=== PATIENT | male | born 1970 | race Caucasian/White ===

== ENCOUNTER 2017-03-04 22:11 | Emergency (ER) | payer OTHER ==
[~2017-03-04] VITALS: Ht 185.4 cm; Wt 86.2 kg
[2017-03-04 22:11] VITALS: BP_SYST 118
--- NOTE | 2017-03-04 22:11 | NUR ---
Patient to ER bed 7 to gown for evaluation. Side rails up. Report given to CARMEN Dominguez.
--- NOTE | 2017-03-04 22:15 | NUR ---
PT STATES PT HAD FAINTED WHILE WALKING INTO THE HOUSE, PT C/O HEADACHE 05/21 NON-RADIATING. NO KO, NO N/V. A/OX4, AWAKE, AFEBRILE. SAFETY PRECAUTIONS IN PLACE, WILL CONTINUE TO MONITOR.
--- NOTE | 2017-03-04 22:30 | NUR ---
ER Dr. Nicholson at bedside examining patient.
[2017-03-04] MEDS ORDERED: ACETAMINOPHEN 500 MG TABLET PO ONE (23:30)
[2017-03-05 00:24] LABS: BASOPHILS # (AUTO) 0.1 K/uL (0.0-0.2); BASOPHILS % (AUTO) 0.6 % (0.0-2.0); HEMATOCRIT 42.7 % (36-54); HEMOGLOBIN 14.3 g/dL (14.0-18.0); LYMPHOCYTES # (AUTO) 0.6 K/uL (1.0-5.5); LYMPHOCYTES % (AUTO) 4.9 % (20.5-51.5); MEAN CORPUSCULAR HEMOGLOBIN 30 pg (27-31); MEAN CORPUSCULAR HGB CONC 34 % (32-36); MEAN CORPUSCULAR VOLUME 91 fL (79.0-98.0); MONOCYTES # (AUTO) 0.4 K/uL (0.0-1.0); MONOCYTES % (AUTO) 3.7 % (1.7-9.3); NEUTROPHILS # (AUTO) 10.2 K/uL (1.8-7.7); NEUTROPHILS % (AUTO) 90.8 % (40.0-70.0); PLATELET COUNT (AUTO) 241 K/uL (130-430); RED BLOOD CELL COUNT(AUTO) 4.71 MIL/uL (4.2-6.2); RED CELL DISTRIBUTION WIDTH 13.2 % (9.0-15.0); WHITE BLOOD COUNT (AUTO) 11.3 K/uL (4.8-10.8)
[2017-03-05 00:31] LABS: INR 0.9 (0.80-1.20); PROTHROMBIN TIME 9.9 SECS (9.5-12.5)
[2017-03-05 00:43] LABS: ANION GAP 11 (5-15); CALCIUM 9.2 mg/dL (8.4-11.0); CHLORIDE 103 mmol/L (98-107); CREATININE 0.89 mg/dL (0.55-1.30); GLUCOSE 119 mg/dL (70-99); POTASSIUM 4.9 mmol/L (3.5-5.1); SODIUM SERUM 140 mmol/L (136-145); UREA NITROGEN, BLOOD 10 mg/dL (8-21)
[2017-03-05 00:49] LABS: ACETAMINOPHEN 14 ug/mL (1-30); ALANINE AMINOTRANSFERASE 25 U/L (12-78); ALBUMIN 4.1 g/dL (3.4-4.8); ASPARTATE AMINOTRANSFERASE 21 U/L (10-37); TOTAL BILIRUBIN 0.3 mg/dL (0.0-1.0); TOTAL PROTEIN, SERUM 7.1 g/dL (6.4-8.3)
[2017-03-05 00:50] LABS: GFR AFRICAN AMERICAN 119 mL/min (>90)
[2017-03-05 01:08] LABS: BILIRUBIN,URINE NEGATIVE (NEGATIVE); BLOOD, URINE 2+ (NEGATIVE); CLARITY/URINE CLEAR (CLEAR); COLOR,URINE YELLOW (YELLOW); GLUCOSE,URINE 1+ (NEGATIVE); KETONES,URINE NEGATIVE (NEGATIVE); LEUKOCYTE ESTERASE ,URINE NEGATIVE (NEGATIVE); NITRITE, URINE NEGATIVE (NEGATIVE); PH,URINE 5.5 (5.0-8.0); PROTEIN URINE TRACE (NEGATIVE); UROBILINOGEN,URINE 0.2 (0.2-1.0)
[2017-03-05 01:28] LABS: RBC,URINE 0-3 /HPF (0-3)
[2017-03-05 01:28] LABS: SALICYLATE 4 mg/dL (3-30)
[2017-03-05 01:29] LABS: BACTERIA,URINE FEW /HPF (None Seen); MUCUS,URINE None Seen /LPF (None Seen); WBC,URINE 0-3 /HPF (0-3)
[2017-03-05 01:35] LABS: ALCOHOL, BLOOD < 3 mg/dL (<10)
[2017-03-05 01:38] LABS: BARBITURATE, URINE NEGATIVE (NEG <=200); URINE AMPHETAMINE NEGATIVE (NEG <=500)
[2017-03-05 01:39] LABS: BENZODIAZEPINE, URINE NEGATIVE (NEG <=150); COCAINE, URINE NEGATIVE (NEG <=150); METHAMPHETAMINES SCREEN,URINE NEGATIVE (NEG <=500); URINE METHADONE NEGATIVE (NEG <=200)
[2017-03-05 01:40] LABS: CANNABINOID, URINE POSITIVE (NEG <=50); OPIATE, URINE NEGATIVE (NEG <=100); PHENCYCLIDINE SCREEN,URINE NEGATIVE (NEG <=25); UR TRICYCLIC ANTIDEPRESSANTS NEGATIVE (NEG <=300); URINE OXYCODONE SCREEN NEGATIVE (NEG <=100); URINE PROPOXYPHENE SCREEN NEGATIVE (NEG <=300)
[2017-03-05 02:00] VITALS: BP_SYST 113
--- NOTE | 2017-03-05 02:00 | NUR ---
Patient given written and verbal discharge instructions and verbalizes understanding. ER MD Dr. Nicholson discussed with patient the results and treatment provided. Patient in stable condition. ID arm band removed. IV catheter removed intact and dressing applied, no active bleeding. Patient educated on pain management and to follow up with PMD. Pain Scale 1/10, Pt states it is tolerable, ambulates w/ steady gait. Opportunity for questions provided and answered.
== END 2017-03-05 02:00 | disposition home or self-care (01) ==
LOC: SED 22:11
DX: R55 Syncope and collapse (principal); R51 Headache; R41.3 Other amnesia
CPT/HCPCS: 36415; 70450; 80053; 80307; 81000; 82962; 85025; 85610; 85730; 93005; 99285; G0480; G0481; G0482

== ENCOUNTER 2017-06-04 09:28 | Inpatient (IN) | payer OTHER ==
[~2017-06-04] VITALS: Ht 185.4 cm; Wt 84.8 kg
--- NOTE | 2017-06-04 09:35 | NUR ---
Pt was brought to bed 3 with vomiting and headache since this morning 0200, pt states was sweating through many shirts this morning. Pt denies eating anything to cause vomiting. No other injuries/complaints per pt or noted.
[2017-06-04 09:37] VITALS: BP_SYST 119
--- NOTE | 2017-06-04 10:28 | NUR ---
ISRAEL Gabriel at bedside examining patient.
--- NOTE | 2017-06-04 10:30 | NUR ---
Pt was having a seizure, Dr Shelton was at bedside and ativan 2mg ivp was given, is at bedside.
[2017-06-04] MEDS ORDERED: NACL 0.9% 1,000 ML IV ONE (10:41)
--- NOTE | 2017-06-04 10:45 | NUR ---
Pt continued to seize and Dr Shelton ordered another 2 mg ivp of ativan, which was given.
--- NOTE | 2017-06-04 10:50 | NUR ---
Pt is aggitated and kicking and trying to pull out equipment, Dr Shelton is aware
[2017-06-04] MEDS ORDERED: LORazepam 2 MG/ML VIAL (FOR ER USE) ONE ×2 (10:52→11:05)
[2017-06-04] MEDS ORDERED: LORazepam 2 MG/ML VIAL IVP ONE ×2 (11:00→12:00)
--- NOTE | 2017-06-04 11:06 | NUR ---
Dr Shelton ordered Versed 2mg ivp because pt continues to kick and try to pull iv's and equipment off.
[2017-06-04] MEDS ORDERED: MIDAZOLAM HCL 5 MG/5 ML VIAL ONE (11:14)
[2017-06-04] MEDS ORDERED: HALOPERIDOL LACTATE 5 MG/ML VIAL IVP ONE (11:15)
[2017-06-04] MEDS ORDERED: MIDAZOLAM HCL 5 MG/5 ML VIAL IVP ONE (11:15)
--- NOTE | 2017-06-04 11:15 | NUR ---
Pt is still aggitated and kicking and pulling lines, Dr Shelton is aware and pt was moved to bed 1. Pt needs to go to CT and Haldol was ordered to help keep the pt calm during CT.
[2017-06-04 11:33] LABS: HEMATOCRIT 49.1 % (36-54); HEMOGLOBIN 15.6 g/dL (14.0-18.0); MEAN CORPUSCULAR HEMOGLOBIN 30 pg (27-31); MEAN CORPUSCULAR HGB CONC 32 % (32-36); MEAN CORPUSCULAR VOLUME 94 fL (79.0-98.0); PLATELET COUNT (AUTO) 285 K/uL (130-430); RED BLOOD CELL COUNT(AUTO) 5.26 MIL/uL (4.2-6.2); RED CELL DISTRIBUTION WIDTH 13.6 % (9.0-15.0); WHITE BLOOD COUNT (AUTO) 20.5 K/uL (4.8-10.8)
[2017-06-04 11:34] LABS: CALCIUM 9.9 mg/dL (8.4-11.0); CREATININE 1.36 mg/dL (0.55-1.30); POTASSIUM 4.2 mmol/L (3.5-5.1)
--- NOTE | 2017-06-04 11:35 | NUR ---
Pt was given haldol and Sahil and myself took the pt to CT, pt still aggitated but was able to keep the pt still
[2017-06-04 11:37] LABS: INR 0.9 (0.80-1.20); PROTHROMBIN TIME 9.7 SECS (9.5-12.5)
[2017-06-04 11:39] LABS: ALBUMIN 4.9 g/dL (3.4-4.8); TOTAL BILIRUBIN 0.5 mg/dL (0.0-1.0)
[2017-06-04 11:51] LABS: BASOPHILS % (MANUAL) 0 % (0-2); EOSINOPHILS % (MANUAL) 0 % (0-7); LYMPHOCYTES % (MANUAL) 6 % (20-46); MONOCYTES % (MANUAL) 5 % (0-11)
--- NOTE | 2017-06-04 12:00 | NUR ---
Pt is resting comfortably with no noted distress or discomfort, pt is 99% on room air. is at bedside
[2017-06-04 12:12] LABS: ALCOHOL, BLOOD < 3 mg/dL (<10)
[2017-06-04 12:15] LABS: ACETAMINOPHEN < 1 ug/mL (1-30)
[2017-06-04 12:18] LABS: BARBITURATE, URINE NEGATIVE (NEG <=200); BENZODIAZEPINE, URINE NEGATIVE (NEG <=150); CANNABINOID, URINE POSITIVE (NEG <=50); COCAINE, URINE NEGATIVE (NEG <=150); METHAMPHETAMINES SCREEN,URINE NEGATIVE (NEG <=500); OPIATE, URINE NEGATIVE (NEG <=100); PHENCYCLIDINE SCREEN,URINE NEGATIVE (NEG <=25); UR TRICYCLIC ANTIDEPRESSANTS NEGATIVE (NEG <=300); URINE AMPHETAMINE NEGATIVE (NEG <=500); URINE METHADONE NEGATIVE (NEG <=200); URINE OXYCODONE SCREEN NEGATIVE (NEG <=100); URINE PROPOXYPHENE SCREEN NEGATIVE (NEG <=300)
[2017-06-04 12:46] LABS: BILIRUBIN,URINE NEGATIVE (NEGATIVE); BLOOD, URINE 3+ (NEGATIVE); CLARITY/URINE CLEAR (CLEAR); COLOR,URINE YELLOW (YELLOW); GLUCOSE,URINE NEGATIVE (NEGATIVE); KETONES,URINE TRACE (NEGATIVE); LEUKOCYTE ESTERASE ,URINE NEGATIVE (NEGATIVE); NITRITE, URINE NEGATIVE (NEGATIVE); PROTEIN URINE 1+ (NEGATIVE); UROBILINOGEN,URINE 0.2 (0.2-1.0)
--- NOTE | 2017-06-04 12:51 | NUR ---
Medication reconciliation completed with information provided by . Any prior medication reconciliation on file was reviewed and corrected. No home medications
[2017-06-04 12:54] LABS: BACTERIA,URINE FEW /HPF (None Seen); MUCUS,URINE None Seen /LPF (None Seen); WBC,URINE 0-3 /HPF (0-3)
--- NOTE | 2017-06-04 13:02 | NUR ---
Patient will be admitted to care of Dr Barraza. Admitted to telemetry unit. Will go to room 135. Belongings list completed. Summary report printed. Report will be given at bedside.
--- NOTE | 2017-06-04 13:10 | NUR ---
ADMIT NOTE Received pt from ER to the floor with a diagnosis of new onset seizure. Admission process initiated. patient oriented to pain management, safety and call light-teach back done.
--- NOTE | 2017-06-04 13:25 | NUR ---
CONSULTATION PAGED REASON FOR CONSULTATION:NEW ONSET SEIZURES WAS CONSULT CALLED?Y PERSON WHO WAS NOTIFIED:PRASANTH CONSULTING PHYSICIAN:PATRICA ARRIAGA STAFF RADIOLOGIST SPECIALTY:NEURO STAFF RADIOLOGIST PHONE NUMBER:[phone] ORDERING PHYSICIAN:MELLY ALMONTE
--- NOTE | 2017-06-04 13:30 | NUR ---
Admission notes, received pt from e.r for new onset seizures. bed siderails padded. pt is very drowsy but wakes up to voice and touch and then goes back to sleep again. pt's vitals wnl except for temp to 99.6F. no s/s pain, no sob, no distress. o2 sat on room air is 93-94%. pt's and brother at bedside. iv access on left and right arm intact and patent. call light and tv controls at bedside, bed in low position. bed alarm on. room near nurses station. will cont to monitor.
[2017-06-04 13:36] VITALS: BP_SYST 101
[2017-06-04 13:51] VITALS: BP_SYST 117
--- NOTE | 2017-06-04 13:56 | NUR ---
ATTENDING MD DR MORRISON WAS CALLED TO CLARIFY A CONSULT ESEQUIEL CORLEY. DOES NOT HAVE HOSP PRIVILEGES . SPOKE TO BHUMIKA
[2017-06-04] MEDS ORDERED: LORazepam 2 MG/ML VIAL IVP PRN (14:00)
--- NOTE | 2017-06-04 14:28 | NUR ---
ID CONSULT CALLED TO DR JEFFERS, RE: FEVER, HIGH WBC. SPOKE TO ONDINA
[2017-06-04] MEDS: POTASSIUM CHLORIDE 10 MEQ in NACL 0.9% 1,000 ML IV SCH (15:42)
--- NOTE | 2017-06-04 16:00 | NUR ---
rounding notes, pt in bed, sleeping, no signs of distress. no s/s pain, safety precaution in place. pt's at bedside. will cont to monitor.
[2017-06-04 16:07] VITALS: BP_SYST 97
[2017-06-04] MEDS ORDERED: PHENYTOIN SODIUM INJ 1,000 MG in NS 100 ML IV ONE (16:30)
--- NOTE | 2017-06-04 17:38 | NUR ---
PAGED PAGED MELLY ALMONTE AT [phone] SPOKE WITH ROSALIE.
--- NOTE | 2017-06-04 18:04 | NUR ---
DR LOW WAS HERE AND ATTEMPTED SPINAL TAP, UNABLE TO COLLECT SAMPLE. PER PT UNABLE TO COOPERATE TO MAINTAIN A SAFE POSITION FOR COLLEECTION OF SAMPLE.
--- NOTE | 2017-06-04 18:37 | NUR ---
closing notes pt in bed, still sleepy but waits up to voice and touch. family at bedside. dr moore seen patient and dr cooper spoke to rn anahy and gave orders. dr moore saw pt and new orders were given. spinal tap done but unsuccessful. iv fluids infusing well. call light/phone w/in reach. bed in low position. bed alarm on, will endorse pt to night rn.
[2017-06-04] MEDS: levETIRAcetam 500 MG in NS 100 ML IV SCH ×2 (20:37→20:38)
[2017-06-04] MEDS: VANCOMYCIN HCL 1 GM/NS PREMIX 250 ML IV SCH (20:39)
[2017-06-04 21:04] VITALS: BP_SYST 108
[2017-06-04] MEDS: ACYCLOVIR 400 MG TABLET PO SCH (21:23)
--- NOTE | 2017-06-04 21:25 | NUR ---
Patient resting on room air 02 SAT 96 % family at the bedside comfort measures implemented kept clean and dry as needed .
[2017-06-05] VITALS (7 sets, daily range): BP systolic 96–131
--- NOTE | 2017-06-05 00:43 | NUR ---
KEPPRA 1000 MG IVPB administer for seizure control , and effective no active sx noted frequent monitor .
--- NOTE | 2017-06-05 00:45 | NUR ---
VANCOMYCIN 1 GM IVPB administer as ordered no adverse reaction noted skin rash free .
--- NOTE | 2017-06-05 00:46 | NUR ---
Reposition and Turning patient off loading with pillows , family @ the bedside kept clean and dry as needed .
--- NOTE | 2017-06-05 00:47 | NUR ---
ROCEPHIN 2 GM IVPB administer as ordered no allergic reaction noted chest movement symmetrical / .
--- NOTE | 2017-06-05 02:00 | NUR ---
URINE COLLECTED AND SENT TO LAB .
[2017-06-05] MEDS: ACYCLOVIR 400 MG TABLET PO SCH ×3 (06:07→21:32)
[2017-06-05] MEDS: POTASSIUM CHLORIDE 10 MEQ in NACL 0.9% 1,000 ML IV SCH ×2 (06:07→09:06)
--- NOTE | 2017-06-05 06:45 | NUR ---
patient awake alert no visual seizure activity noted family at the bedside skin dry warm chest movement symmetrical call harrell with PT .
[2017-06-05 07:01] LABS: BASOPHILS # (AUTO) 0.3 K/uL (0.0-0.2); BASOPHILS % (AUTO) 2.4 % (0.0-2.0); EOSINOPHILS % (AUTO) 0.4 % (0.0-4.0); HEMATOCRIT 40.4 % (36-54); HEMOGLOBIN 13.5 g/dL (14.0-18.0); LYMPHOCYTES % (AUTO) 9.5 % (20.5-51.5); MEAN CORPUSCULAR HEMOGLOBIN 31 pg (27-31); MEAN CORPUSCULAR HGB CONC 33 % (32-36); MEAN CORPUSCULAR VOLUME 91 fL (79.0-98.0); MONOCYTES % (AUTO) 9.1 % (1.7-9.3); NEUTROPHILS # (AUTO) 8.7 K/uL (1.8-7.7); NEUTROPHILS % (AUTO) 78.6 % (40.0-70.0); PLATELET COUNT (AUTO) 195 K/uL (130-430); RED BLOOD CELL COUNT(AUTO) 4.42 MIL/uL (4.2-6.2); RED CELL DISTRIBUTION WIDTH 13.5 % (9.0-15.0)
[2017-06-05 07:55] LABS: ALBUMIN 3.6 g/dL (3.4-4.8); CREATININE 0.89 mg/dL (0.55-1.30); POTASSIUM 3.7 mmol/L (3.5-5.1); THYROID STIMULATING HORMONE 0.52 uIu/mL (0.34-4.82); TOTAL BILIRUBIN 0.5 mg/dL (0.0-1.0)
--- NOTE | 2017-06-05 08:10 | NUR ---
RN OPENING NOTE PT PRESENTED WITH NEW ONSET OF SEIZURE - BED RAIL PADS IN PLACE AND PT AND HIS (WHO IS AT BEDSIDE) EDUCATED ON SEIZURE PRECAUTIONS AND S/S OF SEIZURE. PT RESTING IN BED WITH NO COMPLAINT OF DISCOMFORT, A/O X 4, AND VS STABLE ON ROOM AIR. R F/A IV IS PATENT, DRESSING DRY AND INTACT. PT EDUCATED ON UNIT SAFETY AND DISPLAYED ABILITY TO USE THE CALL LIGHT. BED IS IN LOWEST POSITION, CALL LIGHT AND PHONE IS WITHIN REACH, AND BED ALARM IS SET.
--- NOTE | 2017-06-05 08:53 | NUR ---
Nutrition Update Joe Scale 16 noted. Pt admitted for new onset seizures. Diet: regular BMI: 24.7 kg/m2 RD to follow per nutrition care standards.
[2017-06-05] MEDS: FAMOTIDINE 20 MG TABLET PO SCH (09:23)
[2017-06-05] MEDS: ACETAMINOPHEN 325 MG TABLET PO PRN ×2 (09:23→18:36)
[2017-06-05] MEDS: levETIRAcetam 500 MG in NS 100 ML IV SCH ×2 (09:24→21:33)
--- NOTE | 2017-06-05 10:00 | NUR ---
RN ROUNDS PT RESTING IN BED AND APPEARS TO BE SLEEPING WITH NO SIGN OF DISCOMFORT. THE PT'S IS AT BEDSIDE.
[2017-06-05] MEDS: VANCOMYCIN HCL 1 GM/NS PREMIX 250 ML IV SCH ×2 (10:11→21:34)
[2017-06-05] MEDS ORDERED: ONDANSETRON HCL 4 MG/2 ML VIAL IVP PRN (13:00)
--- NOTE | 2017-06-05 13:08 | NUR ---
DR. MORRISON AT BEDSIDE - NEW ORDERS RECEIVED
[2017-06-05] MEDS ORDERED: LIDOCAINE 1%, 20 ML MDV 20 ML ONE (13:22)
[2017-06-05] MEDS: KCL 20 mEq in D5NS 1000 mL 1,000 ML IV SCH ×2 (15:05→22:58)
--- NOTE | 2017-06-05 16:15 | NUR ---
PT RETURNED FROM MRI, VS STABLE ON ROOM AIR AND PT IS NOT COMPLAINING OF PAIN.
--- NOTE | 2017-06-05 17:45 | NUR ---
DR. LOW AT BEDSIDE
[2017-06-05 17:46] LABS: CSF APPEARANCE CLEAR (CLEAR); CSF COLOR COLORLESS (COLORLESS); CSF TUBE NUMBER 3; CSF VOLUME 7.5 mL
[2017-06-05 17:47] LABS: CSF LYMPHOCYTES 100 % (40-60); CSF RED BLOOD CELL COUNT 1 /uL (0-0); CSF WHITE BLOOD CELL COUNT 3 /uL (0-5)
[2017-06-05 18:04] LABS: CSF GLUCOSE 61 mg/dL (40-70); CSF PROTEIN 37 mg/dL (15-45)
--- NOTE | 2017-06-05 18:36 | NUR ---
PT COMPLAINING OF MILD HEADACHE: TYLENOL ADMINISTERED PRESCRIBED.
--- NOTE | 2017-06-05 19:15 | NUR ---
RN CLOSING NOTES PT IS SITTING UP IN BED TALKING WITH HIS FAMILY MEMBERS WHO ARE AT BEDSIDE. PT IS NOT COMPLAINING OF DISCOMFORT AND STATED HE WAS SATISFIED WITH THE CARE HE RECEIVED DURING THE SHIFT. REPORT ENDORSED AT BEDSIDE.
--- NOTE | 2017-06-05 20:35 | NUR ---
Patient awake alert assist out of bed to rest room , skin dry warm chest movement symmetrical fall measures implemented seizure precautions in place .
--- NOTE | 2017-06-05 22:00 | NUR ---
EEG in progress @ the bedside patient awake & alert .
--- NOTE | 2017-06-05 22:58 | NUR ---
spoke with DR Navneet LOW , UPDATED & AWARE OF CSF CULTURE RARE WBC & NO ORGANISM SEEN , TEST RESULTS .
--- NOTE | 2017-06-05 23:00 | NUR ---
SBAR Report given to Ned ARIAS .
--- NOTE | 2017-06-05 23:00 | NUR ---
received the pt from the RN pt a/a/ox4 no seizure activity noted.seizure precautions in place.iv intact to rt ac,no redness or swelling noted.monitor in place and shows SR.call light within reach ,safety measures in progress.will continue to monitor.
--- NOTE | 2017-06-05 23:10 | NUR ---
Received report from Gil MORALES. IV Rocephin ongoing. Patient a/o x 4. Family at bedside. Seizure precaution applied. Emptied 200 ml clear yellow urine from urinal. Call light within reach, bed at lowest position, will continue to monitor patient with Ned ARIAS.
--- NOTE | 2017-06-06 02:01 | NUR ---
Patient went to bathroom for BM. C/o groin discomfort, will give Tylenol later.
[2017-06-06] MEDS: ACETAMINOPHEN 325 MG TABLET PO PRN ×2 (02:04→16:33)
--- NOTE | 2017-06-06 02:21 | NUR ---
notes pt ambulated to the bathroom and back.was given tylenol for a c/o groin pain.
--- NOTE | 2017-06-06 03:37 | NUR ---
notes pt sleeping,call light within reach.continue to monitol
[2017-06-06 04:30] VITALS: BP_SYST 106
--- NOTE | 2017-06-06 05:34 | NUR ---
notes pt remains asleep ,no seizure activity noted.
[2017-06-06] MEDS: ACYCLOVIR 400 MG TABLET PO SCH ×3 (05:57→22:20)
--- NOTE | 2017-06-06 06:08 | NUR ---
closing notes pt awaken for medication,no seizure activity noted.will endorse the care of the pt to the day nurse.pt ambulated to the bathroom.
[2017-06-06 08:12] VITALS: BP_SYST 118
--- NOTE | 2017-06-06 08:13 | NUR ---
RN OPENING NOTE PT PRESENTED WITH NEW ONSET OF SEIZURE - BED RAIL PADS IN PLACE. PT IS SITTING UP IN BED WITH NO COMPLAINT OF DISCOMFORT, A/O X 4, SPEAKS MOZAMBICAN, AND VS STABLE ON ROOM AIR. R F/A IV IS PATENT, DRESSING DRY AND INTACT. pT'S IS CURRENTLY AT BEDSIDE. PT AND HIS EDUCATED ON SEIZURE PRECAUTIONS, S/S OF A SEIZURES, AND UNIT SAFETY. PT DISPLAYED ABILITY TO USE THE CALL LIGHT. BED IS IN LOWEST POSITION AND CALL LIGHT AND PHONE WITHIN REACH.
[2017-06-06] MEDS: FAMOTIDINE 20 MG TABLET PO SCH (08:34)
[2017-06-06] MEDS: levETIRAcetam 500 MG in NS 100 ML IV SCH ×2 (08:35→20:18)
--- NOTE | 2017-06-06 08:47 | NUR ---
PAGED PAGED MELLY ALMONTE AT [phone] SPOKE WITH EVA.
--- NOTE | 2017-06-06 09:10 | NUR ---
2ND PAGED TO CALLED MELLY ALMONTE AT [phone] SPOKE WITH EVA.
--- NOTE | 2017-06-06 09:41 | NUR ---
DR LOW AT BEDSIDE DR ORDERED A CBC TO RULE OUT INFECTION
[2017-06-06] MEDS: KCL 20 mEq in D5NS 1000 mL 1,000 ML IV SCH (09:43)
--- NOTE | 2017-06-06 09:50 | NUR ---
IV VANCO DELAYED DUE TO CONCURRENT IV MEDICATION - I WILL ADMINISTER IT NETTIE
[2017-06-06] MEDS ORDERED: HYDROcodone/ACETAMIN 5-325 MG TAB (NORCO/ VICODIN) PO ONE (10:00)
[2017-06-06 10:41] LABS: BASOPHILS # (AUTO) 0.1 K/uL (0.0-0.2); BASOPHILS % (AUTO) 1.6 % (0.0-2.0); EOSINOPHILS # (AUTO) 0.1 K/uL (0.0-0.4); HEMATOCRIT 39.6 % (36-54); HEMOGLOBIN 13.2 g/dL (14.0-18.0); LYMPHOCYTES # (AUTO) 0.8 K/uL (1.0-5.5); LYMPHOCYTES % (AUTO) 9.4 % (20.5-51.5); MEAN CORPUSCULAR HEMOGLOBIN 31 pg (27-31); MEAN CORPUSCULAR HGB CONC 33 % (32-36); MEAN CORPUSCULAR VOLUME 92 fL (79.0-98.0); MONOCYTES # (AUTO) 0.8 K/uL (0.0-1.0); MONOCYTES % (AUTO) 9.8 % (1.7-9.3); NEUTROPHILS # (AUTO) 6.3 K/uL (1.8-7.7); NEUTROPHILS % (AUTO) 78.2 % (40.0-70.0); PLATELET COUNT (AUTO) 183 K/uL (130-430); RED BLOOD CELL COUNT(AUTO) 4.32 MIL/uL (4.2-6.2); RED CELL DISTRIBUTION WIDTH 13.3 % (9.0-15.0); WHITE BLOOD COUNT (AUTO) 8.1 K/uL (4.8-10.8)
[2017-06-06] MEDS: VANCOMYCIN HCL 1 GM/NS PREMIX 250 ML IV SCH ×2 (11:14→22:20)
[2017-06-06 12:17] VITALS: BP_SYST 118
--- NOTE | 2017-06-06 13:30 | NUR ---
RN ROUNDS PT SITTING UP IN BED TALKING WITH SEVERAL FAMILY MEMBERS WHO ARE AT BEDSIDE. PATIENT HAS NO COMPLAINT OF DISCOMFORT AND DOES NOT NEED ANYTHING AT THIS TIME.
[2017-06-06 16:04] VITALS: BP_SYST 116
--- NOTE | 2017-06-06 16:34 | NUR ---
HEADACHE PT COMPLAINING OF PAIN IN THE BACK OF HIS HEAD - PT IS AFEBRILE AND VS STABLE ON ROOM AIR. TYLENOL ADMINISTERED SCHEDULED PRN
--- NOTE | 2017-06-06 18:30 | NUR ---
RN CLOSING NOTE PT SITTING UP IN BED TALKING WITH HIS FAMILY WITH NO COMPLAINT OF DISCOMFORT ASIDE FROM A MILD HEADACHE (TYLENOL RECENTLY ADMINISTERED) PT IS STABLE ON ROOM AIR AND STATED ALL OF HIS NEEDS WERE MET DURING THE SHIFT. i EDUCATED HE AND HIS ON HOW THE BED ALARM WORKS AND THAT WE WILL ACTIVATE IT IF AND WHEN THE KEAVES THE ROOM: PT SATISFIED WITH SAFETY MEASURES.
[2017-06-06 19:55] VITALS: BP_SYST 128
--- NOTE | 2017-06-06 19:55 | NUR ---
INITIAL NOTE Patient resting on the bed. No acute distress. Respiration even and unlabored. AO x 4. C/O neck pain 5/10, will given pain med. Skin warm and dry to touch. IV intact to RAC, no redness, no swelling, no drainage. On D5 NS with KCl 20mEq at 50ml/hr, infusing well. Family at bedside. Discussed the safety issue, use call light when need help, and plan of care, verbally understanding. Safety measure maintained. Bed in low position, padded side rails up. Call light within reached. Will continue to monitor.
[2017-06-06] MEDS: HYDROcodone/ACETAMIN 5-325 MG TAB (NORCO/ VICODIN) PO PRN (20:18)
--- NOTE | 2017-06-06 21:20 | NUR ---
ROUND Patient resting on the be comfortable. No acute distress. Respiration even and unlabored. Safety measure maintained. Bed in low position, padded side rails up. Call light within reached. at bedside. Continue to monitor.
--- NOTE | 2017-06-06 22:49 | NUR ---
AMBULATING IN THE HALLWAY WITH
[2017-06-07] VITALS: BP_SYST 122
--- NOTE | 2017-06-07 00:15 | NUR ---
ROUND Patient resting on the bed with eyes closed. No acute distress. Safety measure maintained. Bed in low position, padded side rails up. Call light within reached. Continue to monitor.
--- NOTE | 2017-06-07 02:29 | NUR ---
ROUND Patient resting on the bed with eyes closed. No acute distress. Respiration even and unlabored. IV intact, IVF infusing well. Safety measure maintained. Bed in low position, side rails up. Call light within reached. Continue to monitor.
[2017-06-07 04:15] VITALS: BP_SYST 110
[2017-06-07] MEDS: KCL 20 mEq in D5NS 1000 mL 1,000 ML IV SCH (04:22)
[2017-06-07] MEDS: HYDROcodone/ACETAMIN 5-325 MG TAB (NORCO/ VICODIN) PO PRN ×3 (04:27→19:59)
--- NOTE | 2017-06-07 04:27 | NUR ---
NORCO GIVEN Patient c/o posterior neck pain 03/21, [place] 5/325mg 1 tab given as ordered. No acute distress. Safety measure maintained. Bed in low position, side rails up. Call light within reached. at bedside. Continue to monitor.
[2017-06-07] MEDS: ACYCLOVIR 400 MG TABLET PO SCH ×3 (06:11→21:24)
--- NOTE | 2017-06-07 06:30 | NUR ---
CLOSING NOTE Patient resting on the bed with eyes closed. No acute distress. Respiration even and unlabored. Skin warm and dry to touch. IV intact to RAC, no redness, no swelling, no drainage. On D5 NS with KCl 20mEq at 50ml/hr, infusing well. at bedside the whole night. All needs met. Hourly rounding during shift. No seizure activity noted during shift. Seizure precaution maintained. Safety measure maintained. Bed in low position, padded side rails up. Call light within reached. Will endorse to morning shift nurse.
--- NOTE | 2017-06-07 07:10 | NUR ---
Morning Rounds: Report given by night worker nurse. Patient asleep in bed at this time. Patient in no distress. on recliner bed asleep as well. No distress or complaints.
--- NOTE | 2017-06-07 08:19 | NUR ---
Medication Patient administered medications, No complications.
[2017-06-07 08:20] VITALS: BP_SYST 123
[2017-06-07] MEDS: FAMOTIDINE 20 MG TABLET PO SCH (08:21)
[2017-06-07] MEDS: levETIRAcetam 500 MG in NS 100 ML IV SCH ×2 (08:22→20:00)
[2017-06-07] MEDS: VANCOMYCIN HCL 1 GM/NS PREMIX 250 ML IV SCH (08:23)
--- NOTE | 2017-06-07 11:39 | NUR ---
Rounds Patient watching television with family members at bedside. Patient denies any complaints or needs at this time. Patient stable and appears relaxed. Encourage use of call light if in need of assistance.
[2017-06-07 12:16] VITALS: BP_SYST 118
--- NOTE | 2017-06-07 14:09 | NUR ---
Rounds Patient denies any discomfort or need for pain medications. Patient linens changed per patient request. Patient watching television with family at this time.
--- NOTE | 2017-06-07 15:15 | NUR ---
PAIN PAIN MEDICATION REASSESSMENT COMPLETED. PATIENT REFUSES ANY PAIN AT THIS TIME. WATCHING TELEVISION AND STATES, " "I FEEL BETTER."
[2017-06-07 16:08] VITALS: BP_SYST 111
[2017-06-07] MEDS: VANCOMYCIN HCL 1,000 MG in NS 250 ML IV SCH (17:09)
--- NOTE | 2017-06-07 17:15 | NUR ---
IV IV ON RIGHT AC, NOTED SOILED. IV DRESSING CHANGED AT THIS TIME, APPLIED NEW TRANSPARENT DRESSING, SECURED WITH MEDIPORE TAPE, DATED WITH INITIALS.
--- NOTE | 2017-06-07 17:35 | NUR ---
ROUNDS PATIENT RESTING AT THIS TIME. FAMILY LEFT AT THIS TIME. PATIENT DENIES ANY DISTRESS.
--- NOTE | 2017-06-07 18:06 | NUR ---
IV Replaced IV leaking at Right AC, removed and Reinserted new iv access to right Forearm using gauge 20, no complications. IV antibiotics continuing to be infused.
--- NOTE | 2017-06-07 18:23 | NUR ---
CLOSING NOTES PATIENT RESTING IN BED WATCHING TELEVISION WITH AT BEDSIDE. PATIENT IN NO DISTRESS AND STABLE.
[2017-06-07 19:20] VITALS: BP_SYST 108
--- NOTE | 2017-06-07 19:20 | NUR ---
INITIAL NOTE Patient resting on the bed comfortable. No acute distress. Respiration even and unlabored. AO x 4. Denied of pain at this time. Skin warm and to touch. IV intact to LFA, no redness, no swelling, no drainage, infusing vancomycin at this time. at bedside. Discussed the safety issue, use call light when need help, and plan of care, verbally understanding. Safety measure maintained. Bed in low position, padded side rails up. Call light within reached. Will continue to monitor.
--- NOTE | 2017-06-07 19:48 | NUR ---
AMBULATING IN THE [address] WITH , NO ACUTE DISTRESS
--- NOTE | 2017-06-07 20:00 | NUR ---
NORCO GIVEN Patient c/o posterior neck pain 5/10 after ambulated. [place] 5/325mg 1tab PO given as ordered. No acute distress. Eating the food brought from family with at bedside. Safety measure maintained. Call light within reached. Continue to monitor.
--- NOTE | 2017-06-07 21:49 | NUR ---
ROUND Patient resting on the bed and watching TV. No acute distress. at bedside. Safety measure maintained. Bed in low position, padded side rails up. Call light within reached. Continue to monitor.
--- NOTE | 2017-06-07 23:10 | NUR ---
ROUND Patient resting on the bed with eyes closed. No acute distress. Respiration even and unlabored. IV intact, IVF infusing well. at bedside. Safety measure maintained. Bed in low position, padded side rails up. Call light within reached. Continue to monitor.
[2017-06-08] MEDS: KCL 20 mEq in D5NS 1000 mL 1,000 ML IV SCH ×2 (00:22→12:49)
[2017-06-08 01:00] VITALS: BP_SYST 149
[2017-06-08] MEDS: VANCOMYCIN HCL 1,000 MG in NS 250 ML IV SCH ×2 (01:08→09:08)
[2017-06-08] MEDS: ACETAMINOPHEN 325 MG TABLET PO PRN (01:13)
--- NOTE | 2017-06-08 01:16 | NUR ---
TYLENOL GIVEN Patient c/o right side of the neck pain 12/19, Tylenol 650mg Po given as ordered. No acute distress. Safety measure maintained. Call light within reached. Bed in low position, padded side rails up. Continue to monitor.
[2017-06-08 04:53] VITALS: BP_SYST 117
--- NOTE | 2017-06-08 04:55 | NUR ---
ROUND Patient resting on the bed with eyes closed. No acute distress. IV intact, IVF infusing well. at bedside. Safety measure maintained. Call light within reached. Bed in low position, padded side rails up. Continue to monitor.
[2017-06-08] MEDS: ACYCLOVIR 400 MG TABLET PO SCH (06:10)
--- NOTE | 2017-06-08 06:46 | NUR ---
CLOSING NOTE Patient resting on the bed. No acute distress. Respiration even and unlabored. Skin warm and to touch. IV intact to LFA, no redness, no swelling, no drainage. On D5 1/2NS with KCL 20mEq at 50ml/hr, infusing well. at bedside. All needs met. Hourly rounding during shift. Safety measure maintained. Bed in low position, padded side rails up. Call light within reached. Will endorse to next shift nurse.
--- NOTE | 2017-06-08 08:00 | NUR ---
AM NOTE: RECEIVED PT A/O X 4, C/O SEIZURE, IV AT RIGHT FA, REGULAR DIET, SKIN INTACT, AMBULATED WELL, CALL LIGHT WITHIN REACH, FAMILY AT BED SIDE.
[2017-06-08] MEDS: FAMOTIDINE 20 MG TABLET PO SCH (09:07)
[2017-06-08] MEDS: levETIRAcetam 500 MG in NS 100 ML IV SCH (09:09)
--- NOTE | 2017-06-08 09:30 | NUR ---
MEDS: ROUTINE MEDS GIVEN, PT TOLERATED WELL.
--- NOTE | 2017-06-08 11:15 | NUR ---
ROUNDING; SEEN BY , PT POSSIBLE WILL D/C TO HOME TODAY.
[2017-06-08 11:27] VITALS: BP_SYST 114
--- NOTE | 2017-06-08 13:05 | NUR ---
ROUNDING; SEEN BY DR. MORRISON. WILL D/C PT TO HOME TODAY.
[2017-06-08 14:00] LABS: WEST NILE VIRUS, IgG, SERUM Negative (Negative)
[2017-06-08] MEDS ORDERED: LEVE500T13 PO (15:29)
[2017-06-08] MEDS ORDERED: ACYC400T PO (15:30)
[2017-06-08 15:37] VITALS: BP_SYST 118
[2017-06-08 15:52] VITALS: BP_SYST 117
--- NOTE | 2017-06-08 16:25 | NUR ---
D/C Patient Patient given medication reconciliation form and D/C instructions. Exit Care provided. Patient verbalized understanding. MD discussed with patient the results and treatment provided. Ambulatory with steady gait for discharge to home. Patient in stable condition, ID band removed. IV catheter removed, intact and dressing applied, no active bleeding. Rx of given. Patient educated on pain management. All belongings sent with patient.
[2017-06-10 10:49] LABS: HSV 1/2 DNA PCR Negative
== END 2017-06-08 16:20 | disposition home or self-care (01) | DRG 76 ==
LOC: SED 09:28 → STU 12:56 → SMU 06-06 20:30
PROVIDERS: ADMIT Internal Medicine; ATTEND Internal Medicine
PROC: 009U3ZX Drainage of Spinal Canal, Percutaneous Approach, Diagnostic (ICD-10-PCS; principal; 2017-06-05)
PROC: B01B1ZZ Fluoroscopy of Spinal Cord using Low Osmolar Contrast (ICD-10-PCS; 2017-06-05)
DX: A87.9 Viral meningitis, unspecified (principal); G40.409 Other generalized epilepsy and epileptic syndromes, not intractable, without status epilepticus; F12.90 Cannabis use, unspecified, uncomplicated; D72.829 Elevated white blood cell count, unspecified; G89.29 Other chronic pain; M54.2 Cervicalgia; Z87.820 Personal history of traumatic brain injury
CPT/HCPCS: 36415; 62270; 70450-TC; 70551; 71010; 80053; 80202-TC; 80307; 81000-TC; 82150-TC; 82947-TC; 83605; 83690-TC; 83880; 84157-TC; 84443-TC; 84484; 85007; 85025; 85027; 85048; 85610-TC; 85730-TC; 86694; 86788; 86789; 87040-TC; 87070-TC; 87086; 87205-TC; 87529; 89051-TC; 95816; 96361; 96374; 96375; 99285; G0480; G0481; G0482; J0696; J1165; J1630; J1953; J2001; J2060; J2250; J3370; J3480; J7030; J7050; J7060